=== PATIENT | female | born 1975 ===

== ENCOUNTER 2018-08-20 18:30 | Emergency (ER) | payer OTHER ==
--- OUTSIDE RECORDS SUMMARY | 2018-08-20 18:53 | XMS REPORT ---
:1975 External Reference #:[id number] Author Organization [facility] Address [address] [place] [address] [place] [address] Phone [phone] Care Team Providers Name Role Phone Ashley Womack MD Primary Care Physician Unavailable Payers Type Date Identification Numbers Payment Provider Subscriber Commercial Policy Number: [id number] [employer] Number: [id number] PayID: [id number] [place] [address] Problems Date Description Provider Status Onset: 12/04/2014 Myasthenia gravis Gonzalo Isabel M.D. Active Social History Type Date Description Comments Hand Dominance Right-handed ETOH Use Consumes 2 glasses of wine per day Smoking Patient is a former smoker Recreational Drug Use Denies Drug Use Daily Caffeine Consumes on average 2 cups of regular coffee per day Allergies, Adverse Reactions, Alerts Date Description Reaction Status Severity Comments 08/29/2013 Sulfa Antibiotics rash active Medications Medication Date Status Form Strength Qnty SIG Indications Ordering Provider Mestinon 05/04/ Active Tablets ER 180mg 180tab 1 by Gonzalo Montejo 2013 s mouth Chalo, twice a M.D. day Lorazepam 08/29/ Active Tablets 0.5mg 10tabs 1 tab by Gonzalo Montejo 2012 mouth Chalo, every 4 M.D. hours as needed air travel Cellcept / Active Tablets 500mg 180tab 1 tab by Gonzalo Montejo s mouth Chalo, twice a M.D. day Pyridostigmine / Active Tablets 60mg 270tab 1 tabs Gonzalo Montejo Hugo 0000 s tid po chanda Isabeln M.D. Claritin 00/00/ Active Capsules 10mg 30caps 1 tablet Unknown 0000 daily as needed prn Warfarin Sodium / Active Tablets 5mg as Unknown 0000 directed Warfarin Sodium / Active Tablets 1mg as Unknown 0000 directed Aspir-81 / Active Tablets DR 81mg 1 by Unknown 0000 mouth every day Iron / Active Tablets 325(65Fe) 1 by Unknown 0000 mg mouth every day Mestinon / Hx Tablets ER 180mg 180tab 1 po bid Gonzalo Moon 0000 - s Chalo 05/04/ Saúl 2013 Amoxicillin / Hx Capsules 1 cap po Unknown 0000 - bid 2012 Eliquis / Hx Tablets 5mg 1 by Unknown 0000 - mouth 08/15/ twice a 2015 day Vital Signs Date Vital Result Comment 08/14/2018 Height 62 inches 5'2" Weight 103.00 lb Heart Rate 66 /min BP Systolic Sitting 110 mmHg BP Diastolic Sitting 62 mmHg Respiratory Rate 16 /min BMI (Body Mass Index) 18.8 kg/m2 02/26/2018 Height 62 inches 5'2" Weight 103.00 lb Heart Rate 72 /min BP Systolic Sitting 124 mmHg BP Diastolic Sitting 78 mmHg Respiratory Rate 16 /min BMI (Body Mass Index) 18.8 kg/m2 06/11/2017 Height 62 inches 5'2" Weight 102.00 lb Heart Rate 64 /min BP Systolic Sitting 128 mmHg BP Diastolic Sitting 90 mmHg Respiratory Rate 12 /min BMI (Body Mass Index) 18.7 kg/m2 08/16/2016 Height 62 inches 5'2" Weight 106.00 lb Heart Rate 68 /min BP Systolic Sitting 122 mmHg BP Diastolic Sitting 74 mmHg BMI (Body Mass Index) 19.4 kg/m2 01/14/2016 Height 62 inches 5'2" Weight 100.00 lb Heart Rate 68 /min BP Systolic Sitting 126 mmHg BP Diastolic Sitting 74 mmHg Respiratory Rate 16 /min BMI (Body Mass Index) 18.3 kg/m2 12/04/2014 Height 62 inches 5'2" Weight 105.00 lb Heart Rate 76 /min BP Systolic Sitting 132 mmHg BP Diastolic Sitting 84 mmHg Respiratory Rate 16 /min BMI (Body Mass Index) 19.2 kg/m2 04/03/2014 Height 62 inches 5'2" Weight 105.00 lb Heart Rate 60 /min BP Systolic Sitting 120 mmHg BP Diastolic Sitting 60 mmHg Respiratory Rate 16 /min BMI (Body Mass Index) 19.2 kg/m2 08/29/2013 Heart Rate 78 /min BP Systolic Sitting 102 mmHg BP Diastolic Sitting 78 mmHg Respiratory Rate 16 /min 02/19/2013 Heart Rate 68 /min BP Systolic Sitting 130 mmHg BP Diastolic Sitting 82 mmHg Respiratory Rate 16 /min Results Test Date Test Result H/L Range Note CBC No Diff 08/07/2018 White Blood Count 6.9 10^3/uL 3.5-10.8 Red Blood Count 5.12 10^6/uL 4.00-5.40 Hemoglobin 14.4 g/dL 12.0-16.0 Hematocrit 41 % 35-47 Mean Corpuscular Volume 81 fL 80-97 Mean Corpuscular Hemoglobin 28 pg 27-31 Mean Corpuscular HGB Conc 35 g/dL 31-36 Red Cell Distribution Width 15 % 10.5-15 Platelet Count 233 10^3/uL 150-450 Mean Platelet Volume 6.9 um3 Low 7.4-10.4 Comp Metabolic Panel 08/07/2018 Albumin 4.9 g/dL 3.2-5.2 Sodium 138 mmol/L 135-145 Potassium 4.9 mmol/L 3.5-5.0 Chloride 108 mmol/L 101-111 Co2 Carbon Dioxide 26 mmol/L 22-32 Anion Gap 4 mmol/L 2-11 Calcium 9.8 mg/dL 8.6-10.3 Total Protein 7.6 g/dL 6.4-8.9 Globulin 2.7 g/dL 2-4 Albumin/Globulin Ratio 1.8 1-3 Total Bilirubin 0.70 mg/dL 0.2-1.0 Glucose 91 mg/dL 70-100 Blood Urea Nitrogen 19 mg/dL 6-24 Creatinine 0.78 mg/dL 0.51-0.95 BUN/Creatinine Ratio 24.4 High 8-20 Alkaline Phosphatase 60 U/L 34-104 Alt 18 U/L 7-52 Ast 21 U/L 13-39 Egfr Non- 80.2 >60 Egfr 97.1 >60 1 Comp Metabolic Panel 02/22/2018 Sodium 139 mmol/L 139-145 Potassium 4.2 mmol/L 3.5-5.0 Chloride 107 mmol/L 101-111 Co2 Carbon Dioxide 27 mmol/L 22-32 Anion Gap 5 mmol/L 2-11 Glucose 90 mg/dL 70-100 Blood Urea Nitrogen 17 mg/dL 6-24 Creatinine 0.89 mg/dL 0.51-0.95 BUN/Creatinine Ratio 19.1 8-20 Calcium 9.0 mg/dL 8.6-10.3 Total Protein 6.9 g/dL 6.4-8.9 Albumin 4.2 g/dL 3.2-5.2 Globulin 2.7 g/dL 2-4 Albumin/Globulin Ratio 1.6 1-3 Total Bilirubin 0.60 mg/dL 0.2-1.0 Alkaline Phosphatase 44 U/L 34-104 Alt 13 U/L 7-52 Ast 17 U/L 13-39 Egfr Non- 68.9 >60 Egfr 88.6 >60 2 Comp Metabolic Panel 06/11/2017 Sodium 136 mmol/L 133-145 Potassium 4.0 mmol/L 3.5-5.0 Chloride 105 mmol/L 101-111 Co2 Carbon Dioxide 27 mmol/L 22-32 Anion Gap 4 mmol/L 2-11 Glucose 84 mg/dL 70-100 Blood Urea Nitrogen 13 mg/dL 6-24 Creatinine 0.77 mg/dL 0.51-0.95 BUN/Creatinine Ratio 16.9 8-20 Calcium 8.9 mg/dL 8.6-10.3 Total Protein 7.2 g/dL 6.4-8.9 Albumin 4.4 g/dL 3.2-5.2 Globulin 2.8 g/dL 2-4 Albumin/Globulin Ratio 1.6 1-3 Total Bilirubin 0.70 mg/dL 0.2-1.0 Alkaline Phosphatase 57 U/L 34-104 Alt 14 U/L 7-52 Ast 19 U/L 13-39 Egfr Non- 81.8 >60 Egfr 105.2 >60 3 1 Because ethnic data is not always readily available, this report includes an eGFR for both -Americans and non- Americans. The National Kidney Disease Education Program (NKDEP) does not endorse the use of the MDRD equation for patients that are not between the ages of 18 and 70, are , have extremes of body size, muscle mass, or nutritional status, or are non- or non-. According to the National Kidney Foundation, irrespective of diagnosis, the stage of the disease is based on the level of kidney function: Stage Description GFR(mL/min/1.73 m(2)) 1 Kidney damage with normal or decreased GFR 90 2 Kidney damage with mild decrease in GFR 60-89 3 Moderate decrease in GFR 30-59 4 Severe decrease in GFR 15-29 5 Kidney failure <15 (or dialysis) 2 Because ethnic data is not always readily available, this report includes an eGFR for both -Americans and non- Americans. The National Kidney Disease Education Program (NKDEP) does not endorse the use of the MDRD equation for patients that are not between the ages of 18 and 70, are , have extremes of body size, muscle mass, or nutritional status, or are non- or non-. According to the National Kidney Foundation, irrespective of diagnosis, the stage of the disease is based on the level of kidney function: Stage Description GFR(mL/min/1.73 m(2)) 1 Kidney damage with normal or decreased GFR 90 2 Kidney damage with mild decrease in GFR 60-89 3 Moderate decrease in GFR 30-59 4 Severe decrease in GFR 15-29 5 Kidney failure <15 (or dialysis) 3 Because ethnic data is not always readily available, this report includes an eGFR for both -Americans and non- Americans. The National Kidney Disease Education Program (NKDEP) does not endorse the use of the MDRD equation for patients that are not between the ages of 18 and 70, are , have extremes of body size, muscle mass, or nutritional status, or are non- or non-. According to the National Kidney Foundation, irrespective of diagnosis, the stage of the disease is based on the level of kidney function: Stage Description GFR(mL/min/1.73 m(2)) 1 Kidney damage with normal or decreased GFR 90 2 Kidney damage with mild decrease in GFR 60-89 3 Moderate decrease in GFR 30-59 4 Severe decrease in GFR 15-29 5 Kidney failure <15 (or dialysis) Procedures Date CPT Code Description Status 11/30/2017 Mammogram Completed Encounters Type Date Location Provider CPT E/M Dx Office Visit 02/26/2018 [facility] Gonzalo Isabel, 24985 G70.00 1:45p [facility] Z79.899 Office Visit 06/11/2017 1:45p [facility] Gonzalo Isabel, 77533 G70.00 [facility] [employer] M.D. Office Visit 08/16/2016 11:30a [facility] Gonzalo Isabel, 27487 G70.00 [facility] [employer] [facility] M.D. Office Visit 01/14/2016 11:45a [facility] Gonzalo Isabel, 10092 G70.00 [facility] [employer] M.D. Office Visit 07/23/2015 11:45a [facility] Gonzalo Isabel, 61349 358.00 [facility] [employer] M.D. Office Visit 12/04/2014 1:00p [facility] Gonzalo Isabel, 61802 358.00 [facility] [employer] [facility] M.D. Office Visit 04/03/2014 10:45a [facility] Gonzalo Isabel, 81670 358.00 [facility] [employer] M.D. Office Visit 08/29/2013 11:45a [facility] Gonzalo Isabel, 58639 358.00 [facility] [employer] M.D. Office Visit 02/19/2013 11:45a [facility] Gonzalo Isabel, 27476 358.00 [facility] [employer] M.D. Office Visit 07/16/2012 3:30p [facility] Gonzalo Isabel, 83422 358.00 [facility] [employer] M.D. Plan of Care Future Appointment(s):02/12/2019 2:15 pm - Gonzalo Isabel M.D. at [facility]08/30/2018 11:00 am - John Smith NP at [facility]08/14/2018 - Gonzalo Isabel M.D.G70.00 Myasthenia gravis without (acute) exacerbationFollow up:6 [id number] Other care home (current) drug therapy
--- NOTE | 2018-08-20 21:13 | RAD ---
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 Limited exam was focused on the right lower extremity veins. COMPARISON: No relevant prior studies available. FINDINGS: Right deep veins: Unremarkable. The common femoral, femoral and popliteal veins are patent without thrombus. Normal compressibility, augmentation response and Doppler waveforms. Right superficial veins: Unremarkable. Saphenofemoral junction is patent without thrombus. Soft tissues: There is a hypoechoic area within an anterior thigh muscle measuring 1.6 x 1.3 x 0.8 cm which may reflect an intramuscular hematoma. IMPRESSION: 1. Hypoechoic area within an anterior thigh muscle measuring 1.6 x 1.3 x 0.8 cm which may reflect an intramuscular hematoma or tear. 2. Otherwise negative right lower extremity venous duplex exam without evidence of deep venous thrombosis. To contact [facility] with a general question: Operations Center - [phone] For direct physician to physician contact: Physician Hotline - [phone] [facility] ([facility] Facility ID #[id number])
--- NOTE | 2018-08-20 21:46 | ED ---
Lower Extremity - HPI Summary HPI Summary: Patient states she woke up last night in the middle of my with right anterior thigh pain. Denies trauma, bruising. Pain worse with hip extension and knee extension. States history of DVTs. Anticoagulated on Coumadin. Denies any other pain or injury or symptoms. - History of Current Complaint Chief Complaint: EDExtremityLower Stated Complaint: RT LEG PAIN Time Seen by Provider: 08/20/18 21:15 Hx Obtained From: Patient Mechanism Of Injury: Unknown Onset of Pain: Hours Onset/Duration: Hours Severity Initially: Moderate Severity Currently: Moderate Pain Intensity: 4 Pain Scale Used: 0-10 Numeric Timing: Constant Location: Is Discrete @ Character Of Pain: Sharp Associated Signs And Symptoms: Positive: Negative Aggravating Factor(s): Movement Alleviating Factor(s): Rest Able to Bear Weight: Yes - Allergies/Home Medications Allergies/Adverse Reactions: Allergies Allergy/AdvReac Type Severity Reaction Status Date / Time No Known Allergies Allergy Verified 08/20/18 18:48 Home Medications: Home Medications NK [No Home Medications Reported] 08/20/18 [History Confirmed 08/20/18] PMH/Surg Hx/FS Hx/Imm Hx Endocrine/Hematology History: Reports: Hx Anticoagulant Therapy Cardiovascular History: Denies: Hx Cardiac Arrest History: Denies: Hx Dialysis Neurological History: Denies: Hx CVA Infectious Disease History: No Infectious Disease History: Denies: Traveled Outside the [place] in Last 30 Days - Social History Alcohol Use: Occasionally Substance Use Type: Reports: None Smoking Status (MU): Never Smoked Tobacco Review of Systems Constitutional: Negative Eyes: Negative ENT: Negative Cardiovascular: Negative Respiratory: Negative Gastrointestinal: Negative Genitourinary: Negative Positive: Myalgia Skin: Negative Neurological: Negative Psychological: Normal All Other Systems Reviewed And Are Negative: Yes Physical Exam - Summary Physical Exam Summary: Pain with extension of hip and right knee. No erythema, deformity, bruising, extra warmth noted to right leg. calf Soft Nontender. Full Range Of Motion of right hip and right knee. EMS intact distally. Triage Information Reviewed: Yes Vital Signs On Initial Exam: Initial Vitals Temp Pulse Resp BP Pulse Ox 98.1 F 59 16 185/103 98 08/20/18 18:32 08/20/18 18:32 08/20/18 18:32 08/20/18 18:32 08/20/18 18:32 Vital Signs Reviewed: Yes Appearance: Positive: Well-Appearing Skin: Positive: Warm Head/Face: Positive: Normal Head/Face Inspection Eyes: Positive: Normal Neck: Positive: Supple Respiratory/Lung Sounds: Positive: Clear to Auscultation Cardiovascular: Positive: Normal Abdomen Description: Positive: Nontender Musculoskeletal: Positive: Normal Neurological: Positive: Normal Psychiatric: Positive: Normal AVPU Assessment: Alert - [place] Coma Scale Best Eye Response: 4 - Spontaneous Best Motor Response: 6 - Obeys Commands Best Verbal Response: 5 - Oriented Coma Scale Total: 15 Diagnostics - Vital Signs Vital Signs Temp Pulse Resp BP Pulse Ox 08/20/18 18:32 98.1 F 59 16 185/103 98 - Laboratory Lab Statement: Any lab studies that have been ordered have been reviewed, and results considered in the medical decision making process. - Ultrasound No standard instances Ultrasound Interpretation: No Acute Changes - Negative for DVT Ultrasound Interpretation Completed By: Radiologist Lower Extremity Course/Dx - Course Course Of Treatment: Patient states she woke up last night in the middle of my with right anterior thigh pain. Denies trauma, bruising. Pain worse with hip extension and knee extension. States history of DVTs. Anticoagulated on Coumadin. Denies any other pain or injury or symptoms. Physical exam:Pain with extension of hip and right knee. No erythema, deformity, bruising, extra warmth noted to right leg. calf Soft Nontender. Full Range Of Motion of right hip and right knee. PMS intact distally. Ultrasound negative for DVTs. Positive for possible intramuscular tear or hematoma. Patient has appointment with hematology tomorrow. - Diagnoses Provider Diagnoses: Acute thigh pain Discharge - Sign-Out/Discharge Documenting (check all that apply): Patient Departure - Discharge Plan Condition: Stable Disposition: HOME Patient Education Materials: Muscle Strain (ED), Hematoma (ED) Referrals: No Primary Care Phys,NOPCP [Primary Care Provider] - Mj Day MD [Medical Doctor] - Additional Instructions: If symptoms do not improve over the next few days follow up with orthopedics Dr. Landeros. Return to the ED for any new or worsening symptoms - Billing Disposition and Condition Condition: STABLE Disposition: Home
[2018-08-20 21:51] VITALS: BP 112/60
--- NOTE | 2018-08-21 10:23 | ED ---
Progress - Progress Note Progress Note: Dr. Swanson from radiology called after reviewing the lower extremity veins of the right examination venous Doppler from August 20, 2018. He had concern that the hypoechoic region is not definitively representing fluid hematoma. He recommended orthopedic referral and further assessment with pre-and postcontrast MRI. I called the patient at [phone]. There was no answer. I left a message asking the patient to call us back emergency department to discuss these findings. Course/Dx - Diagnoses Provider Diagnoses: Acute thigh pain Discharge - Sign-Out/Discharge Documenting (check all that apply): Patient Departure - Discharge Plan Condition: Stable Disposition: HOME Patient Education Materials: Muscle Strain (ED), Hematoma (ED) Referrals: Mj Day MD [Medical Doctor] - No Primary Care Phys,NOPCP [Primary Care Provider] - Additional Instructions: If symptoms do not improve over the next few days follow up with orthopedics Dr. Landeros. Return to the ED for any new or worsening symptoms - Billing Disposition and Condition Condition: STABLE Disposition: Home
== END 2018-08-20 21:50 | disposition home or self-care (01) ==
LOC: ED 18:30
DX: M79.651 Pain in right thigh (principal); Z79.01 Long term (current) use of anticoagulants
CPT/HCPCS: 99282